=== PATIENT | female | born 1955 | race African-American/Black ===

== ENCOUNTER 2016-11-13 12:51 | Emergency (ER) | payer SELFPAY ==
--- NOTE | 2016-11-13 15:02 | ER Document Report ---
ED Medical Screen (RME) - General Chief Complaint: Anxiety Stated Complaint: LIGHTHEADED Time Seen by Provider: 11/13/16 14:57 Notes: Patient says that she is experiencing lightheadedness and nauseated. Started last night. Patient thinks is because she is not taking her medications, Zoloft and Seroquel since August. Patient moved here from [place] at the end of July and has not been able to find an appointment to get her prescriptions refilled until December. She has not been trying to get an appointment locally until just recently. Patient denies any pains anywhere. Specifically, denies pain in her chest. Nauseated but not vomiting. No urinary symptoms. She has had a cough that is productive of some brown, hemphill phlegm. Has no fever. PMH: Hypertension and NIDDM, also out of her medicines. Smokes cigarettes. TRAVEL OUTSIDE OF THE [place] IN LAST 30 DAYS: No - Related Data Allergies/Adverse Reactions: No Known Allergies Allergy (Verified 11/13/16 13:21) Past Medical History Renal/ Medical History: Denies: Hx Peritoneal Dialysis Physical Exam - Vital signs Vitals: Temp Pulse Resp BP Pulse Ox 98.0 F 77 16 130/86 H 99 11/13/16 13:21 11/13/16 13:21 11/13/16 13:21 11/13/16 13:21 11/13/16 13:21 Course - Vital Signs Vital signs: Temp Pulse Resp BP Pulse Ox 98.0 F 77 16 130/86 H 99 11/13/16 13:21 11/13/16 13:21 11/13/16 13:21 11/13/16 13:21 11/13/16 13:21 Doctor's Discharge - Discharge Instructions: Anxiety ([facility])
[2016-11-13 15:41] LABS: ABSOLUTE BASOPHILS # (AUTO) 0.1 10^3/uL (0.0-0.2); ABSOLUTE EOSINOPHILS # (AUTO) 0.2 10^3/uL (0.0-0.6); ABSOLUTE LYMPHOCYTES (AUTO) 2.6 10^3/uL (0.5-4.7); ABSOLUTE MONOCYTES (AUTO) 0.6 10^3/uL (0.1-1.4); ABSOLUTE NEUT (AUTO) 2.6 10^3/uL (1.7-8.2); BASOPHILS % (AUTO) 1.2 % (0-2); EOSINOPHILS % (AUTO) 2.6 % (0-6); HEMATOCRIT 42.2 % (36.0-47.0); HEMOGLOBIN 14.3 g/dL (12.0-15.5); HGB HCT DIFFERENCE 0.7; LYMPHOCYTES % (AUTO) 43.5 % (13-45); MEAN CORPUSCULAR HEMOGLOBIN 29.8 pg (27.0-33.4); MEAN CORPUSCULAR HGB CONC 33.8 g/dL (32.0-36.0); MEAN CORPUSCULAR VOLUME 88 fl (80-97); MONOCYTES % (AUTO) 9.7 % (3-13); RED BLOOD COUNT 4.79 10^6/uL (3.72-5.28); RED CELL DISTRIBUTION WIDTH 13.4 % (11.5-14.0); WHITE BLOOD COUNT 5.9 10^3/uL (4.0-10.5)
[2016-11-13 15:49] LABS: APPEARANCE,URINE SLIGHTLY-CLOUDY; BILIRUBIN,URINE NEGATIVE (NEGATIVE); GLUCOSE, URINE NEGATIVE (NEGATIVE); KETONES,URINE NEGATIVE (NEGATIVE); LEUKOCYTE ESTERASE,URINE SMALL (NEGATIVE); NITRITE,URINE NEGATIVE (NEGATIVE); PROTEIN,URINE NEGATIVE (NEGATIVE); UROBILINOGEN,URINE NEGATIVE mg/dL (<2.0)
[2016-11-13 16:08] LABS: ALANINE AMINOTRANSFERASE 25 U/L (9-52); ALBUMIN 4.4 g/dL (3.5-5.0); ALKALINE PHOSPHATASE 100 U/L (38-126); ANION GAP 11 (5-19); ASPARTATE AMINO TRANSFERASE 26 U/L (14-36); BILIRUBIN,DIRECT 0.4 mg/dL (0.0-0.4); BILIRUBIN,TOTAL 1.2 mg/dL (0.2-1.3); BLOOD UREA NITROGEN 9 mg/dL (7-20); CALCIUM 10.1 mg/dL (8.4-10.2); CARBON DIOXIDE 26 mmol/L (22-30); CHLORIDE 105 mmol/L (98-107); CREATININE RESULT 0.75 mg/dL (0.52-1.25); GLUCOSE 100 mg/dL (75-110); POTASSIUM 4.8 mmol/L (3.6-5.0); SODIUM 142.2 mmol/L (137-145); TOTAL PROTEIN 8.2 g/dL (6.3-8.2)
--- NOTE | 2016-11-13 19:00 | ER Document Report ---
ED General - General Chief Complaint: Anxiety Stated Complaint: LIGHTHEADED Time Seen by Provider: 11/13/16 14:57 Mode of Arrival: Ambulatory Information source: Patient - History really TRAVEL OUTSIDE OF THE [place] IN LAST 30 DAYS: No - HPI Notes: Patient is a 61-year-old female presents emergency department with reports that she feels anxious and nervous and lightheaded with insomnia related to running out of her Seroquel and Zoloft and lisinopril 2 months ago. Patient denies any hallucinations or chest pain or difficulty breathing or palpitations. She reports no focal numbness or weakness. The patient denies any abdominal pain, constipation, diarrhea or dysuria. She denies any suicidal ideation, but she does report previous suicide attempt in the past, explaining that was the reason that she was started on Seroquel and Zoloft. She denies any headache, neck stiffness or back pain. - Related Data Allergies/Adverse Reactions: No Known Allergies Allergy (Verified 11/13/16 13:21) Past Medical History - General Information source: Patient - Social History Smoking Status: Current Every Day Smoker Chew tobacco use (# tins/day): No Frequency of alcohol use: None Drug Abuse: Marijuana Lives with: Family Family History: Reviewed & Not Pertinent Patient has suicidal ideation: No Patient has homicidal ideation: No - Past Medical History Cardiac Medical History: Reports: Hx Hypercholesterolemia Endocrine Medical History: Reports: Hx Diabetes Mellitus Type 2 Renal/ Medical History: Denies: Hx Peritoneal Dialysis Psychiatric Medical History: Reports: Hx Depression Past Surgical History: Reports: Hx Hysterectomy Review of Systems - Review of Systems Notes: REVIEW OF SYSTEMS: CONSTITUTIONAL : Denies fever, chills, or sweats. Denies recent illness. EENT: Denies eye, ear, throat, or mouth pain or symptoms. Denies nasal or sinus congestion or discharge. Denies throat, tongue, or mouth swelling or difficulty swallowing. CARDIOVASCULAR: Denies chest pain. Denies palpitations or racing or irregular heart beat. Denies ankle edema. RESPIRATORY: Denies cough, cold, or chest congestion. Denies shortness of breath, difficulty breathing, or wheezing. GASTROINTESTINAL: Denies abdominal pain or distention. Denies nausea, vomiting , or diarrhea. Denies blood in vomitus, stools, or per rectum. Denies black, tarry stools. Denies constipation. GENITOURINARY: Denies difficulty urinating, painful urination, burning, frequency, blood in urine, or discharge. FEMALE GENITOURINARY: Denies vaginal bleeding, heavy or abnormal periods, irregular periods. Denies vaginal discharge or odor. MUSCULOSKELETAL: Denies back or neck pain or stiffness. Denies joint pain or swelling. SKIN: Denies rash, lesions or sores. HEMATOLOGIC : Denies easy bruising or bleeding. LYMPHATIC: Denies swollen, enlarged glands. NEUROLOGICAL: Denies confusion or altered mental status. Denies passing out or loss of consciousness. Denies headache. D enies weakness or paralysis or loss of use of either side. Denies problems with gait or speech. Denies sensory loss, numbness, or tingling. Denies seizures. PSYCHIATRIC: Patient reports anxiety and insomnia with increased stress, largely related to not being able to get her medications since she has been in the area. Denies depression, suicidal ideation, or homicidal ideation. ALL OTHER SYSTEMS REVIEWED AND NEGATIVE. Dictation was performed using [employer] voice recognition software Physical Exam - Vital signs Vitals: Temp Pulse Resp BP Pulse Ox 98.0 F 77 16 130/86 H 99 11/13/16 13:21 11/13/16 13:21 11/13/16 13:21 11/13/16 13:21 11/13/16 13:21 - Notes Notes: PHYSICAL EXAMINATION: GENERAL: Well-appearing, well-nourished and in no acute distress. HEAD: Atraumatic, normocephalic. EYES: Pupils equal round and reactive to light, extraocular movements intact, conjunctiva are normal. ENT: Nares patent, oropharynx clear without exudates. Moist mucous membranes. NECK: Normal range of motion, supple without lymphadenopathy LUNGS: Breath sounds clear to auscultation bilaterally and equal. No wheezes rales or rhonchi. HEART: Regular rate and rhythm without murmurs ABDOMEN: Soft, nontender, nondistended abdomen. No guarding, no rebound. No masses appreciated. Female : deferred Musculoskeletal: Normal range of motion, no pitting or edema. No cyanosis. NEUROLOGICAL: Cranial nerves grossly intact. Normal speech, normal gait. Normal sensory, motor exams. No cerebellar ataxia. PSYCH: Normal affect. May be mildly anxious. SKIN: Warm, Dry, normal turgor, no rashes or lesions noted. Course - Re-evaluation Re-evalutation: 11/13/16 19:00 Patient was noted to be in bigeminy on the EKG, but otherwise at the bedside she would only have occasional PVCs without bigeminy. The patient would have sensation of feeling lightheaded and anxious even when she had normal sinus rhythm without significant PVCs and had a stable blood pressure. Based upon this finding, it was not thought the patient's symptoms were secondary to the PVCs and the patient had no other significant arrhythmia. Patient was ambulatory without significant complaint. Orthostatics were normal, with blood pressure increasing somewhat. Discussion was undertaken with the patient Regarding her medications, and she reports she has lost weight down perhaps 15 pounds in the last 3 months. With this finding, the patient's medication dosing may be cut back from what she previously has had. Instead of Seroquel 200 nightly, I will write for 100 nightly. Instead of Zoloft 100 mg twice a day, I will write for 100 mg per day. Instead of lisinopril 20 mg daily, I will write for 10 mg daily. The patient states she is on medication for cholesterol but she does not know the name of it and I am unable to find any information regarding this in the record. Patient was given a dose medications as she states she was unable to afford the medications. milk processing worker came down to evaluate the patient and made a follow-up appointment with her to assist with medications and follow-up care. No evidence clinically for CVA or TIA or acute neurologic compromise. There is no evidence for anemia, renal insufficiency, hypertensive encephalopathy, congestive heart failure or pneumonia. 11/13/16 19:05 - Vital Signs Vital signs: Temp Pulse Resp BP Pulse Ox 98.0 F 69 16 125/85 99 11/13/16 13:21 11/13/16 18:03 11/13/16 13:21 11/13/16 18:03 11/13/16 13:21 - Laboratory Result Diagrams: 11/13/16 15:15 11/13/16 15:15 Laboratory results interpreted by me: 11/13/16 15:15 Urine Blood SMALL H Ur Leukocyte Esterase SMALL H - EKG Interpretation by Me Additional EKG results interpreted by me: 11/13/16 18:59 EKG as interpreted by me showed sinus rhythm with bigeminy. There is no gross evidence for acute PA or ischemia. No old EKG available for comparison. Discharge - Discharge Clinical Impression: Dizziness, Anxiety, PVC (premature ventricular contraction) Hypertension Qualifiers: Hypertension type: essential hypertension Qualified Code(s): I10 - Essential ( primary) hypertension Condition: Stable Disposition: HOME, SELF-CARE Instructions: Anxiety ([facility]), Dizziness ([facility]), High Blood Pressure ([facility]), PVCs ( [facility]) Prescriptions: Lisinopril [Prinivil 10 mg Tablet] 10 mg PO DAILY #30 tablet Quetiapine Fumarate [Seroquel 100 mg Tablet] 100 mg PO HSP PRN #30 tablet PRN Reason: Sertraline HCl [Zoloft] 100 mg PO DAILY #30 tablet
[2016-11-13] MEDS ORDERED: SERTRALINE HCL 50 MG TABLET PO ONE (19:34)
[2016-11-13] MEDS ORDERED: QUETIAPINE FUMARATE 100 MG TABLET PO ONE (19:34)
[2016-11-13] MEDS ORDERED: LISINOPRIL 10 MG TABLET PO ONE (19:34)
[2016-11-13 19:49] VITALS: BP 146/91
--- NOTE | 2016-11-14 07:09 | EKG REPORT ---
SEVERITY:- ABNORMAL ECG - SINUS RHYTHM VENTRICULAR BIGEMINY BORDERLINE T ABNORMALITIES, ANT-LAT LEADS : Confirmed by: Lanie Duong MD 14-Nov-2016 07:09:09
== END 2016-11-13 19:49 | disposition home or self-care (01) ==
LOC: ER 12:51
DX: F41.9 Anxiety disorder, unspecified (principal); G47.00 Insomnia, unspecified; F43.9 Reaction to severe stress, unspecified; R00.8 Other abnormalities of heart beat; I49.3 Ventricular premature depolarization; R42 Dizziness and giddiness; R63.4 Abnormal weight loss; Z68.29 Body mass index [BMI] 29.0-29.9, adult; I10 Essential (primary) hypertension; E78.00 Pure hypercholesterolemia, unspecified; F32.9 Major depressive disorder, single episode, unspecified; E11.9 Type 2 diabetes mellitus without complications; Z91.5 Personal history of self-harm; Z91.14 Patient's other noncompliance with medication regimen; Z59.9 Problem related to housing and economic circumstances, unspecified
CPT/HCPCS: 36415; 71020; 80053; 81001; 85025; 93005; 93010; 99284

== ENCOUNTER 2017-03-17 10:40 | Emergency (ER) | payer SELFPAY ==
[2017-03-17 11:11] LABS: APPEARANCE,URINE SLIGHTLY-CLOUDY; BILIRUBIN,URINE NEGATIVE (NEGATIVE); GLUCOSE, URINE NEGATIVE (NEGATIVE); KETONES,URINE NEGATIVE (NEGATIVE); LEUKOCYTE ESTERASE,URINE TRACE (NEGATIVE); NITRITE,URINE NEGATIVE (NEGATIVE); PROTEIN,URINE NEGATIVE (NEGATIVE); URINE SPECIFIC GRAVITY 1.019; UROBILINOGEN,URINE NEGATIVE mg/dL (<2.0)
--- NOTE | 2017-03-17 11:11 | ER Document Report ---
ED Psych Disorder / Suicide - General TRAVEL OUTSIDE OF THE [place] IN LAST 30 DAYS: No <JULIANNE GARCIA - Last Filed: 03/17/17 15:54> - General Mode of Arrival: Ambulatory Information source: Patient, Outside Facility Records TRAVEL OUTSIDE OF THE [place] IN LAST 30 DAYS: No - HPI Patient complains to provider of: Suicidal ideation - yesterday, Other - out of medication Onset: Yesterday Onset was: Gradual Suicide Risk Factors: Bipolar Situational problems related to: Other - conflict with granddaughter Normal mood: Yes Associated symptoms: Normal affect, Normal mood Similar symptoms previously: No Recently seen / treated by doctor: Yes <PARAMJIT LI - Last Filed: 03/17/17 16:58> - General Chief Complaint: Suicidal Ideation Stated Complaint: PSYCH EVAL Time Seen by Provider: 03/17/17 10:57 - HPI Notes: 61-year-old female presents with IVC paperwork dated yesterday as the patient apparently had had some suicidal thoughts with plan over the weekend. She had been without her medication she states for about 2 weeks went to go get them from her doctor today and was brought to the emergency department for IVC at that point. She has had some subjective chills and a little bit of left headache but has no physical complaints otherwise. She has a history of diabetes. Uses marijuana but no other illegal drugs or alcohol. Denies any chest pain or breathing difficulty abdominal pain vomiting. She reports at this point no suicidal ideation and that she talk to her granddaughter that has multiple psychiatric issues and feels different after talking to her and she told her to get back on her medications which she was attempting to do. ( JULIANNE GARCIA) Conducted initial evaluation on 03/17/2017 at 1334. Patient is a 61 year old female who presented to the ED today via [facility] on IVC, petitioned by her therapist at [facility], for SI and having been off medication for a month. Patient reported she saw her therapist at [facility] yesterday. She admitted she expressed SI but had no plan, went home, cried, and then went to bed. She stated she woke up in a better mood because she knew she was going to [facility] as a walk in for medication. She stated she had not realized she could do a walk in like that to get medication. She explained she does not have insurance or money so [facility] provides samples. She stated prescribed medications were: Latuda 60MG and Beverley something low dose. She stated she had been off medication for about 2 weeks. She stated she went to leave her home this morning to head to [facility] but was there for her. She denied previous MH hospitalizations except for a place in [place] that held her for 4-5 hours and then sent her home. She identified she had a break down in [place] which is why her granddaughter brought her to [place], however they had an argument 3-4 months ago and granddaughter disowned. Patient was alert and oriented. Mood was euthymic with congruent and bright affect. She denied current SI, stated it was yesterday, but she just went home cried and went to sleep. She talked about planning to go to [facility] this AM for medications and then going home to cook pancakes, eggs and ramirez (future thinking). She denied HI. She did not appear to be responding to internal stimuli AEB fair eye contact, answering questions appropriately when addressed, staying on topic, and carrying on dialogue conversation. Thought processes were organized and linear. Conversational speech was WNL for rate, tone and prosody. Intellectual abilities are estimated to be average. Insight, judgment and impulse control are fair AEB bright affect and linear thinking. Contacted [facility]. Najma provided following medication list: Latuda 60MG QGS Trintellix 20MG QD Trazodone 100MG QHS PRN Diagnosis: 292.9 (F12.99) Unspecified Cannabis Related Disorder 296.80 (F31.9) Unspecified Bipolar and Related Disorder by History Ran out of medication Impression/Plan: Patient is psychiatrically cleared for discharge. Recommendation to rescind IVC. She does not meet [place] [address] IVC criteria. She denied current SI, admitted to having thoughts last night without plan, and wanting to get back on her medication. She denied HI and this was not a presenting concern. No psychosis observed and this was not a presenting concern. Patient was administered a one time dose of Latuda 40MG prior to discharge. She was provided with an outpatient resource sheet with emphasis on mobile crisis numbers. She was instructed to take her discharge paperwork and scripts directly to [facility] from the ED as a walk in. Obtained verification from [facility] that they are open until 1700 and as long as she walked in before then she would be able to get her medications. Consulted with Dr. Fierro regarding the management and care of patient. ED Physician in agreement with recommendations. (PARAMJIT LI) - Related Data Allergies/Adverse Reactions: No Known Allergies Allergy (Verified 11/13/16 13:21) Home Medications: Current Home Medications Trazodone HCl 200 mg PO QHS 03/17/17 [History] Vortioxetine Hydrobromide [Brintellix] 5 mg PO DAILY 03/17/17 [History] Past Medical History - Social History Smoking Status: Current Every Day Smoker Family History: Reviewed & Not Pertinent - Past Medical History Cardiac Medical History: Reports: Hx Hypercholesterolemia Endocrine Medical History: Reports: Hx Diabetes Mellitus Type 2 Renal/ Medical History: Denies: Hx Peritoneal Dialysis Psychiatric Medical History: Reports: Hx Depression Past Surgical History: Reports: Hx Hysterectomy <JULIANNE GARCIA - Last Filed: 03/17/17 15:54> Review of Systems - Review of Systems -: Yes All other systems reviewed and negative <JULIANNE GARCIA - Last Filed: 03/17/17 15:54> Physical Exam <JULIANNE GARCIA - Last Filed: 03/17/17 15:54> <PARAMJIT LI - Last Filed: 03/17/17 16:58> - Vital signs Vitals: Temp Pulse Resp BP Pulse Ox 99.0 F 73 16 146/96 H 96 03/17/17 11:00 03/17/17 11:00 03/17/17 11:00 03/17/17 11:00 03/17/17 11:00 - Notes Notes: GENERAL: VS as per nursing doc. Well-appearing, well-nourished and in no acute distress. HEAD: Atraumatic, normocephalic EYES: Pupils equal round and reactive to light, extraocular movements intact, sclera anicteric, no conjunctival injection or discharge. ENT: Nares patent, oropharynx clear without exudates, moist mucous membranes. NECK: Normal range of motion, supple without lymphadenopathy. LUNGS: Breath sounds clear to auscultation bilaterally and equal. No wheezes rales or rhonchi. HEART: Regular rate and rhythm without murmurs. Peripheral pulses equal. ABDOMEN: Soft, non-tender. BACK: Normal to inspection EXTREMITIES: Normal appearance without edema. NEUROLOGICAL: Cranial nerves grossly intact. Normal speech. Normal sensory and motor exams. No gross cerebellar abnormalities. PSYCH: Oriented 3. Calm, directable. No evidence of hallucinations or delusions. No reported suicidal or homicidal ideation. Normal thought content. Good insight. Speech is appropriate. SKIN: Warm, dry. No lacerations. (JULIANNE GARCIA) Course - Laboratory Result Diagrams: 03/17/17 11:50 03/17/17 11:50 <JULIANNE GARCIA - Last Filed: 03/17/17 15:54> - Laboratory Result Diagrams: 03/17/17 11:50 03/17/17 11:50 <PARAMJIT LI - Last Filed: 03/17/17 16:58> - Re-evaluation Re-evalutation: 03/17/17 15:54 Psychiatrist on evaluate the patient. They worked out through her counselor follow-up. She will be going directly there to greens picker samples of her Latuda, trazodone, Tritellix. She has no suicidal ideation and is comfortable with discharge. (JULIANNE GARCIA) - Vital Signs Vital signs: Temp Pulse Resp BP Pulse Ox 98.3 F 71 16 159/89 H 99 03/17/17 16:10 03/17/17 16:10 03/17/17 16:10 03/17/17 16:10 03/17/17 16:10 - Laboratory Laboratory results interpreted by me: 03/17/17 03/17/17 03/17/17 10:46 11:50 11:50 Seg Neutrophils % 41.5 L Lymphocytes % 46.2 H Urine Blood SMALL H Ur Leukocyte Esterase TRACE H Salicylates < 1.0 L Acetaminophen < 10 L Discharge <JULIANNE GARCIA - Last Filed: 03/17/17 15:54> <PARAMJIT LI - Last Filed: 03/17/17 16:58> - Discharge Clinical Impression: Suicidal ideation Condition: Stable Disposition: HOME, SELF-CARE Additional Instructions: DEPRESSION: Your evaluation reveals that you have mental depression. While symptoms may be vague, they often include disturbance of sleep, fatigue, loss of appetite , and general loss of interest in life. While depression may be a side effect of drugs, or a reaction to a major change in your life, many cases have no known cause. If depression is acute, and related to a major loss in your life, you can expect it to clear completely with time. If you have been depressed a long time , are prone to repeated bouts of depression or low mood, or have been thinking of suicide, get help. Depression can be treated with anti-depressant medication and counselling. Long-term depression will often take a few weeks to clear, even with appropriate medication. Follow-up care is important. SUICIDAL IDEATION: Suicidal ideation is a common medical term for thoughts about suicide, which may be as detailed as a formulated plan, without the suicidal act itself. Although most people who undergo suicidal ideation do not commit suicide, some go on to make suicide attempts. The range of suicidal ideation varies greatly from fleeting to detailed planning, role playing, and unsuccessful attempts. While thoughts about suicide are common, most people do not carry out serious actions to commit suicide. Based upon your evaluation and discussion with you, we do not believe you are currently at risk to act upon your thoughts of suicide. You have agreed to return to the Emergency Department, at any time , if you feel inclined to act upon your suicidal thoughts. FOLLOW-UP CARE: You will go directly to [facility] upon discharge from the emergency department as a walk in for follow up. If you experience worsening or a significant change in your symptoms, notify the physician immediately or return to the Emergency Department at any time for re-evaluation. You may also utilize mobile crisis (these numbers have been provided to you). Prescriptions: Trazodone HCl 100 mg PO QHS #7 tablet Lurasidone HCl [Latuda 40 mg Tablet] 40 mg PO DAILY #7 tablet Vortioxetine Hydrobromide [Brintellix] 20 mg PO DAILY #7 tablet Referrals: [facility] [Outside] - 03/17/17 4:15 pm
[2017-03-17 11:30] LABS: URINE BARBITURATES SCREEN NEGATIVE; URINE METHADONE SCREEN NEGATIVE; URINE OPIATES LOW NEGATIVE; URINE PHENCYCLIDINE SCREEN NEGATIVE
[2017-03-17 12:31] LABS: ABSOLUTE EOSINOPHILS # (AUTO) 0.2 10^3/uL (0.0-0.6); ABSOLUTE LYMPHOCYTES (AUTO) 2.2 10^3/uL (0.5-4.7); ABSOLUTE MONOCYTES (AUTO) 0.4 10^3/uL (0.1-1.4); BASOPHILS % (AUTO) 0.9 % (0-2); EOSINOPHILS % (AUTO) 3.3 % (0-6); HEMOGLOBIN 13.4 g/dL (12.0-15.5); HGB HCT DIFFERENCE 1.2; LYMPHOCYTES % (AUTO) 46.2 % (13-45); MEAN CORPUSCULAR HEMOGLOBIN 30.1 pg (27.0-33.4); MEAN CORPUSCULAR HGB CONC 34.4 g/dL (32.0-36.0); MEAN CORPUSCULAR VOLUME 88 fl (80-97); MONOCYTES % (AUTO) 8.1 % (3-13); RED BLOOD COUNT 4.46 10^6/uL (3.72-5.28); RED CELL DISTRIBUTION WIDTH 13.4 % (11.5-14.0); SEGMENTED NEUTROPHILS % (AUTO) 41.5 % (42-78); WHITE BLOOD COUNT 4.8 10^3/uL (4.0-10.5)
--- NOTE | 2017-03-17 12:48 | EKG REPORT ---
SEVERITY:- NORMAL ECG - SINUS RHYTHM : Confirmed by: Shaun Sullivan MD 17-Mar-2017 12:47:54
[2017-03-17 12:51] LABS: ALANINE AMINOTRANSFERASE 27 U/L (9-52); ALBUMIN 4.1 g/dL (3.5-5.0); ALKALINE PHOSPHATASE 71 U/L (38-126); ANION GAP 9 (5-19); ASPARTATE AMINO TRANSFERASE 22 U/L (14-36); BILIRUBIN,DIRECT 0.3 mg/dL (0.0-0.4); BILIRUBIN,TOTAL 0.8 mg/dL (0.2-1.3); BLOOD UREA NITROGEN 9 mg/dL (7-20); CALCIUM 9.5 mg/dL (8.4-10.2); CARBON DIOXIDE 28 mmol/L (22-30); CHLORIDE 105 mmol/L (98-107); CREATININE RESULT 0.75 mg/dL (0.52-1.25); GLUCOSE 90 mg/dL (75-110); POTASSIUM 4.3 mmol/L (3.6-5.0); SODIUM 141.6 mmol/L (137-145); TOTAL PROTEIN 7.3 g/dL (6.3-8.2)
[2017-03-17 12:59] LABS: ALCOHOL < 10 mg/dL (NONE DETECTED)
[2017-03-17] MEDS ORDERED: LURASIDONE HCL 40 MG TABLET PO ONE (15:44)
[2017-03-17 16:11] VITALS: BP 159/89
== END 2017-03-17 16:11 | disposition home or self-care (01) ==
LOC: ER 10:40
DX: R45.851 Suicidal ideations (principal); R51 Headache; F12.99 Cannabis use, unspecified with unspecified cannabis-induced disorder; F31.9 Bipolar disorder, unspecified; E78.00 Pure hypercholesterolemia, unspecified; I10 Essential (primary) hypertension; Z90.710 Acquired absence of both cervix and uterus
CPT/HCPCS: 93005; 99285; 36415; 80307 ×4; 85025; 80053; 81001; 93010; J3490